=== PATIENT | female | born 1980 | race Caucasian/White ===

== ENCOUNTER 2020-06-19 19:34 | Inpatient (IN) | payer OTHER ==
[~2020-06-19] VITALS: Ht 160 cm; Wt 88.5 kg
[2020-06-19] MEDS ORDERED: PRENATAL CAPLE1 EAC1 (20:41)
[2020-06-19] MEDS ORDERED: CHILDREN'S ASPI81 MG (20:41)
[2020-06-19] MEDS ORDERED: FOLIC ACID20 MG (20:42)
[2020-06-19] MEDS ORDERED: IRON236 MG (20:43)
== END 2020-06-25 15:38 | disposition home or self-care (01) | DRG 788 ==
LOC: LDR 19:34 → OB/GYN 19:34
PROVIDERS: ADMIT Obstetrics & Gynecology; ATTEND Obstetrics & Gynecology
PROC: 4A1HXFZ Monitoring of Products of Conception, Cardiac Rhythm, External Approach (ICD-10-PCS; 2020-06-22)
PROC: 10D00Z1 Extraction of Products of Conception, Low, Open Approach (ICD-10-PCS; principal; 2020-06-22 10:00)
DX: O36.5930 Maternal care for other known or suspected poor fetal growth, third trimester, not applicable or unspecified (principal); O76 Abnormality in fetal heart rate and rhythm complicating labor and delivery; Z3A.36 36 weeks gestation of pregnancy; Z37.0 Single live birth; Z20.822 Contact with and (suspected) exposure to COVID-19